=== PATIENT | female | born 1935 | race Caucasian/White ===

== ENCOUNTER 2020-12-30 08:22 | Inpatient (IN) ==
[2020-12-30 09:43] LABS: Basophils % 0.5 % (0.0-0.8); Eosinophils % 0.2 % (0.00-10.9); Hematocrit 40.5 VOL% (35.7-47.0); Immature Granulocytes % 0.4 %; Immature Granulocytes Absolute 0.02 #; Lymphocytes # 1.8 10*3/uL (1.4-4.0); Lymphocytes % 32.1 % (21.3-54.2); Mean Corpuscular HGB Conc 32.1 GM/DL (32-36); Mean Corpuscular Volume 97.6 FL (87-102); Mean Platelet Volume 10.7 FL (9.6-12.0); Monocytes % 13.7 % (1.7-12.7); Neutrophils % 53.1 % (38.7-73.9); Platelet Count 141 T/CUMM (130-400); Red Blood Count 4.15 MC/CUMM (3.8-5.5); Red Cell Distribution Width 13.7 % (9.3-17.3); White Blood Count 5.5 T/CUMM (4-12)
[2020-12-30 10:18] LABS: Glucose,Urine (UA) Negative (Negative); Protein,Urine Negative; Urine Appearance Clear (Clear); Urine Color Yellow (Yellow); Urine Specific Gravity 1.005 (1.001-1.035)
[2020-12-30 10:19] LABS: Bilirubin,Urine Negative (Negative); Blood, Urine Negative (Negative); Ketones,Urine 25 mg/dL (Negative); Nitrite,Urine Negative (Negative); Urine Urobilinogen < 2.0 EU/DL (0.2-1.0)
[2020-12-30 10:42] LABS: Alanine Aminotransferase 24 U/L (13-56); Albumin 2.4 G/DL (3.4-5.0); Alkaline Phosphatase 77 U/L (45-117); Aspartate Amino Transferase 31 U/L (0-37); Bilirubin,Total < 0.39 MG/DL (0.20-1.00); Blood Urea Nitrogen 12 MG/DL (7-18); Calcium 8.2 MG/DL (8.5-10.1); Carbon Dioxide 27 MMOL/L (21-32); Estimated Glom Filtration Rate 83 ML/MIN; Glucose 116 MG/DL (74-106); Osmolality,Calculated 279.4 MOS/KG (273-304); Potassium 4.5 MMOL/L (3.5-5.1); Sodium 140 MMOL/L (136-145); Total Protein 6.6 G/DL (6.4-8.2)
[2020-12-30 10:46] LABS: Barbiturates Screen,Urine Negative (Negative); Benzodiazepines Screen,Urine Negative (Negative); Cannabinoid Screen,Urine Negative (Negative); Opiate Screen,Urine Negative (Negative); Phencyclidine Screen,Urine Negative (Negative)
[2020-12-30] MEDS ORDERED: DEXTROSE 50% 25 GM/50 ML VIAL IV PRN ×2 (11:44)
[2020-12-30] MEDS ORDERED: GLUCAGON 1 MG VIAL IM PRN (11:44)
[2020-12-30] MEDS ORDERED: BISACODYL 5 MG TABLET PO PRN (11:45)
[2020-12-30] MEDS ORDERED: ACETAMINOPHEN 325 MG TABLET PO PRN (11:45)
[2020-12-30] MEDS ORDERED: ONDANSETRON 4 MG/2 ML VIAL IV PRN (11:45)
[2020-12-30] MEDS ORDERED: NICOTINE 21 MG/24 HR PATCH TRANSDERM PRN (11:45)
[2020-12-30] MEDS ORDERED: guaiFENesin/DM ER 600-30 MG TABLET PO PRN (11:45)
[2020-12-30] MEDS ORDERED: AZITHROMYCIN INJ 500 MG in SODIUM CHLORIDE 0.9% 250 ML IV ONE (11:47)
[2020-12-30] MEDS ORDERED: MELATONIN 3 MG TABLET PO PRN (11:47)
[2020-12-30 12:18] LABS: Ferritin 376.8 ng/ml (8-252)
[2020-12-30] MEDS: ENOXAPARIN 40 MG/0.4 ML SYRINGE SUBCUT SCH (12:33)
[2020-12-30] MEDS: SODIUM CHLORIDE 0.9% 1,000 ML IV SCH (12:33)
[2020-12-30] MEDS: cefTRIAXone 1,000 MG in SODIUM CHLORIDE 0.9% 100 ML IV SCH ×2 (13:14→14:00)
[2020-12-30] MEDS ORDERED: REMDESIVIR 200 MG in SODIUM CHLORIDE 0.9% 210 ML IV ONE (17:30)
[2020-12-31] MEDS: INSULIN LISPRO 100 UNIT/ML SUBCUT SCH ×6 (01:15→21:08)
[2020-12-31] MEDS: ASCORBIC ACID 500 MG TABLET PO SCH ×3 (01:17→21:07)
[2020-12-31] MEDS: DIVALPROEX 250 MG TABLET PO SCH ×4 (01:17→21:06)
[2020-12-31] MEDS: FAMOTIDINE 20 MG TABLET PO SCH ×3 (01:17→21:07)
[2020-12-31] MEDS: SODIUM CHLORIDE 0.9% 1,000 ML IV SCH ×3 (03:27→16:31)
[2020-12-31 05:18] LABS: Basophils % 0.3 % (0.0-0.8); Hematocrit 42.6 VOL% (35.7-47.0); Immature Granulocytes % 0.3 %; Immature Granulocytes Absolute 0.02 #; Lymphocytes % 33.2 % (21.3-54.2); Mean Corpuscular HGB Conc 32.9 GM/DL (32-36); Mean Corpuscular Volume 95.9 FL (87-102); Mean Platelet Volume 9.8 FL (9.6-12.0); Monocytes % 12.5 % (1.7-12.7); Neutrophils % 53.7 % (38.7-73.9); Platelet Count 154 T/CUMM (130-400); Red Blood Count 4.44 MC/CUMM (3.8-5.5); Red Cell Distribution Width 13.2 % (9.3-17.3)
[2020-12-31 05:35] LABS: Calcium 8.2 MG/DL (8.5-10.1); Osmolality,Calculated 276.5 MOS/KG (273-304); Risk Ratio 5.11; VLDL Cholesterol 20.4 MG/DL
[2020-12-31] MEDS: LEVOTHYROXINE 112 MCG TABLET PO SCH (05:37)
[2020-12-31 07:30] LABS: Ferritin 439.2 ng/ml (8-252)
[2020-12-31] MEDS: amLODIPine 5 MG TABLET PO SCH (08:03)
[2020-12-31] MEDS: CHOLECALCIFEROL 1,000 UNIT TABLET PO SCH (08:04)
[2020-12-31] MEDS: AZITHROMYCIN 250 MG TABLET PO SCH (08:04)
[2020-12-31] MEDS: CETIRIZINE 10 MG TABLET PO SCH (08:04)
[2020-12-31] MEDS: ZINC GLUCONATE 50 MG TABLET PO SCH (08:04)
[2020-12-31] MEDS: REMDESIVIR 100 MG in SODIUM CHLORIDE 0.9% 100 ML IV SCH (09:42)
[2020-12-31] MEDS: DEXAMETHASONE 4 MG/1 ML VIAL IV SCH (09:42)
[2020-12-31] MEDS: ENOXAPARIN 40 MG/0.4 ML SYRINGE SUBCUT SCH (11:59)
[2020-12-31] MEDS: cefTRIAXone 1,000 MG in SODIUM CHLORIDE 0.9% 100 ML IV SCH (11:59)
[2020-12-31] MEDS: SKIN HEALING OINT (AQUAPHOR) 50 GM TUBE TOP SCH (16:32)
[2021-01-01] MEDS: LEVOTHYROXINE 112 MCG TABLET PO SCH (05:32)
[2021-01-01 06:11] LABS: Basophils % 0.3 % (0.0-0.8); Hematocrit 38.8 VOL% (35.7-47.0); Hemoglobin 12.6 GM/DL (12.0-16.0); Immature Granulocytes % 0.3 %; Immature Granulocytes Absolute 0.02 #; Lymphocytes % 27.6 % (21.3-54.2); Mean Corpuscular HGB Conc 32.5 GM/DL (32-36); Mean Corpuscular Volume 96.3 FL (87-102); Mean Platelet Volume 9.7 FL (9.6-12.0); Monocytes % 12.6 % (1.7-12.7); Neutrophils % 59.2 % (38.7-73.9); Platelet Count 170 T/CUMM (130-400); Red Blood Count 4.03 MC/CUMM (3.8-5.5); Red Cell Distribution Width 13.2 % (9.3-17.3); White Blood Count 7.3 T/CUMM (4-12)
[2021-01-01] MEDS: SODIUM CHLORIDE 0.9% 1,000 ML IV SCH (06:13)
[2021-01-01 06:40] LABS: Alanine Aminotransferase 16 U/L (13-56); Alkaline Phosphatase 55 U/L (45-117); Aspartate Amino Transferase 26 U/L (0-37); Bilirubin,Total < 0.39 MG/DL (0.20-1.00); Blood Urea Nitrogen 24 MG/DL (7-18); Carbon Dioxide 25 MMOL/L (21-32); Estimated Glom Filtration Rate 90 ML/MIN; Ferritin 504.3 ng/ml (8-252); Glucose 120 MG/DL (74-106); Osmolality,Calculated 287.1 MOS/KG (273-304); Potassium 3.8 MMOL/L (3.5-5.1); Sodium 142 MMOL/L (136-145); Total Protein 5.3 G/DL (6.4-8.2)
[2021-01-01] MEDS: INSULIN LISPRO 100 UNIT/ML SUBCUT SCH ×4 (07:12→21:32)
[2021-01-01] MEDS: DEXAMETHASONE 4 MG/1 ML VIAL IV SCH (09:14)
[2021-01-01] MEDS: REMDESIVIR 100 MG in SODIUM CHLORIDE 0.9% 100 ML IV SCH (09:38)
[2021-01-01] MEDS: CETIRIZINE 10 MG TABLET PO SCH (09:44)
[2021-01-01] MEDS: ZINC GLUCONATE 50 MG TABLET PO SCH (09:44)
[2021-01-01] MEDS: ASCORBIC ACID 500 MG TABLET PO SCH ×2 (09:44→21:30)
[2021-01-01] MEDS: SKIN HEALING OINT (AQUAPHOR) 50 GM TUBE TOP SCH (09:44)
[2021-01-01] MEDS: AZITHROMYCIN 250 MG TABLET PO SCH (09:44)
[2021-01-01] MEDS: CHOLECALCIFEROL 1,000 UNIT TABLET PO SCH (09:44)
[2021-01-01] MEDS: FAMOTIDINE 20 MG TABLET PO SCH ×2 (09:44→21:30)
[2021-01-01] MEDS: DIVALPROEX 250 MG TABLET PO SCH ×3 (09:44→21:30)
[2021-01-01] MEDS: amLODIPine 5 MG TABLET PO SCH (09:44)
[2021-01-01] MEDS: cefTRIAXone 1,000 MG in SODIUM CHLORIDE 0.9% 100 ML IV SCH (12:09)
[2021-01-01] MEDS: ENOXAPARIN 40 MG/0.4 ML SYRINGE SUBCUT SCH (13:18)
[2021-01-02] MEDS: LEVOTHYROXINE 112 MCG TABLET PO SCH (06:05)
[2021-01-02 07:03] LABS: Basophils % 0.1 % (0.0-0.8); Hematocrit 37.2 VOL% (35.7-47.0); Hemoglobin 12.3 GM/DL (12.0-16.0); Immature Granulocytes % 0.5 %; Immature Granulocytes Absolute 0.04 #; Lymphocytes # 2.4 10*3/uL (1.4-4.0); Lymphocytes % 27.7 % (21.3-54.2); Mean Corpuscular HGB Conc 33.1 GM/DL (32-36); Mean Corpuscular Volume 95.4 FL (87-102); Mean Platelet Volume 10.3 FL (9.6-12.0); Neutrophils % 62.7 % (38.7-73.9); Platelet Count 201 T/CUMM (130-400); Red Cell Distribution Width 13.4 % (9.3-17.3); White Blood Count 8.7 T/CUMM (4-12)
[2021-01-02 07:26] LABS: Alanine Aminotransferase 14 U/L (13-56); Albumin 1.9 G/DL (3.4-5.0); Alkaline Phosphatase 55 U/L (45-117); Aspartate Amino Transferase 23 U/L (0-37); Bilirubin,Total < 0.39 MG/DL (0.20-1.00); Blood Urea Nitrogen 22 MG/DL (7-18); Calcium 7.8 MG/DL (8.5-10.1); Carbon Dioxide 25 MMOL/L (21-32); Estimated Glom Filtration Rate 99 ML/MIN; Ferritin 601.2 ng/ml (8-252); Glucose 97 MG/DL (74-106); Osmolality,Calculated 290.7 MOS/KG (273-304); Potassium 3.7 MMOL/L (3.5-5.1); Sodium 145 MMOL/L (136-145); Total Protein 5.1 G/DL (6.4-8.2)
[2021-01-02] MEDS: SODIUM CHLORIDE 0.9% 1,000 ML IV SCH ×2 (07:35→09:43)
[2021-01-02] MEDS: INSULIN LISPRO 100 UNIT/ML SUBCUT SCH ×4 (07:35→22:27)
[2021-01-02] MEDS: REMDESIVIR 100 MG in SODIUM CHLORIDE 0.9% 100 ML IV SCH (09:44)
[2021-01-02] MEDS: SKIN HEALING OINT (AQUAPHOR) 50 GM TUBE TOP SCH (09:44)
[2021-01-02] MEDS: DEXAMETHASONE 4 MG/1 ML VIAL IV SCH (09:46)
[2021-01-02] MEDS: FAMOTIDINE 20 MG TABLET PO SCH ×2 (09:47→22:25)
[2021-01-02] MEDS: ASCORBIC ACID 500 MG TABLET PO SCH ×2 (09:47→22:25)
[2021-01-02] MEDS: DIVALPROEX 250 MG TABLET PO SCH ×3 (09:47→22:25)
[2021-01-02] MEDS: CETIRIZINE 10 MG TABLET PO SCH (09:47)
[2021-01-02] MEDS: CHOLECALCIFEROL 1,000 UNIT TABLET PO SCH (09:47)
[2021-01-02] MEDS: AZITHROMYCIN 250 MG TABLET PO SCH (09:47)
[2021-01-02] MEDS: amLODIPine 5 MG TABLET PO SCH (09:47)
[2021-01-02] MEDS: ZINC GLUCONATE 50 MG TABLET PO SCH (09:47)
[2021-01-02] MEDS: ENOXAPARIN 40 MG/0.4 ML SYRINGE SUBCUT SCH (11:53)
[2021-01-02] MEDS: cefTRIAXone 1,000 MG in SODIUM CHLORIDE 0.9% 100 ML IV SCH (11:53)
[2021-01-03 05:31] LABS: Basophils % 0.4 % (0.0-0.8); Hematocrit 37.1 VOL% (35.7-47.0); Hemoglobin 12.6 GM/DL (12.0-16.0); Immature Granulocytes % 0.5 %; Immature Granulocytes Absolute 0.04 #; Lymphocytes # 2.5 10*3/uL (1.4-4.0); Lymphocytes % 32.7 % (21.3-54.2); Mean Corpuscular Volume 94.2 FL (87-102); Mean Platelet Volume 10.4 FL (9.6-12.0); Neutrophils % 56.4 % (38.7-73.9); Platelet Count 232 T/CUMM (130-400); Red Blood Count 3.94 MC/CUMM (3.8-5.5); Red Cell Distribution Width 13.2 % (9.3-17.3); White Blood Count 7.5 T/CUMM (4-12)
[2021-01-03 06:02] LABS: Alanine Aminotransferase 17 U/L (13-56); Albumin 1.7 G/DL (3.4-5.0); Alkaline Phosphatase 56 U/L (45-117); Aspartate Amino Transferase 19 U/L (0-37); Bilirubin,Total < 0.39 MG/DL (0.20-1.00); Blood Urea Nitrogen 19 MG/DL (7-18); Calcium 7.9 MG/DL (8.5-10.1); Carbon Dioxide 25 MMOL/L (21-32); Estimated Glom Filtration Rate 99 ML/MIN; Ferritin 694.6 ng/ml (8-252); Glucose 135 MG/DL (74-106); Osmolality,Calculated 291.7 MOS/KG (273-304); Potassium 3.3 MMOL/L (3.5-5.1); Sodium 145 MMOL/L (136-145); Total Protein 5.1 G/DL (6.4-8.2)
[2021-01-03] MEDS: LEVOTHYROXINE 112 MCG TABLET PO SCH (06:25)
[2021-01-03] MEDS ORDERED: POTASSIUM CHLORIDE 20 MEQ TABLET PO ONE (07:31)
[2021-01-03] MEDS: INSULIN LISPRO 100 UNIT/ML SUBCUT SCH ×4 (07:56→20:09)
[2021-01-03] MEDS: AZITHROMYCIN 250 MG TABLET PO SCH (08:43)
[2021-01-03] MEDS: ZINC GLUCONATE 50 MG TABLET PO SCH (08:43)
[2021-01-03] MEDS: CHOLECALCIFEROL 1,000 UNIT TABLET PO SCH (08:43)
[2021-01-03] MEDS: DIVALPROEX 250 MG TABLET PO SCH ×3 (08:43→21:35)
[2021-01-03] MEDS: ASCORBIC ACID 500 MG TABLET PO SCH ×2 (08:44→21:36)
[2021-01-03] MEDS: DEXAMETHASONE 4 MG/1 ML VIAL IV SCH (08:44)
[2021-01-03] MEDS: CETIRIZINE 10 MG TABLET PO SCH (08:44)
[2021-01-03] MEDS: amLODIPine 5 MG TABLET PO SCH (08:44)
[2021-01-03] MEDS: FAMOTIDINE 20 MG TABLET PO SCH ×2 (08:44→21:36)
[2021-01-03] MEDS: SKIN HEALING OINT (AQUAPHOR) 50 GM TUBE TOP SCH (08:45)
[2021-01-03 08:57] LABS: Anisocytosis Slight; Platelet Estimate Normal; Spherocytes Few
[2021-01-03] MEDS: SODIUM CHLORIDE 0.9% 1,000 ML IV SCH ×2 (09:10→17:22)
[2021-01-03] MEDS ORDERED: DOCUSATE SODIUM 100 MG CAPSULE PO PRN (09:13)
[2021-01-03] MEDS ORDERED: BISACODYL 10 MG SUPP RECTAL ONE (09:14)
[2021-01-03] MEDS: REMDESIVIR 100 MG in SODIUM CHLORIDE 0.9% 100 ML IV SCH (10:23)
[2021-01-03] MEDS: POLYETHYLENE GLYCOL POWDER 17 GM PACK PO SCH (10:25)
[2021-01-03] MEDS: cefTRIAXone 1,000 MG in SODIUM CHLORIDE 0.9% 100 ML IV SCH (12:06)
[2021-01-03] MEDS: ENOXAPARIN 40 MG/0.4 ML SYRINGE SUBCUT SCH (12:06)
[2021-01-04 03:18] LABS: Basophils % 0.3 % (0.0-0.8); Hematocrit 39.8 VOL% (35.7-47.0); Hemoglobin 13.2 GM/DL (12.0-16.0); Immature Granulocytes % 1.3 %; Lymphocytes # 2.5 10*3/uL (1.4-4.0); Lymphocytes % 32.7 % (21.3-54.2); Mean Corpuscular HGB Conc 33.2 GM/DL (32-36); Mean Corpuscular Volume 93.2 FL (87-102); Neutrophils % 57.7 % (38.7-73.9); Platelet Count 260 T/CUMM (130-400); Red Blood Count 4.27 MC/CUMM (3.8-5.5); Red Cell Distribution Width 13.3 % (9.3-17.3); White Blood Count 7.8 T/CUMM (4-12)
[2021-01-04 03:45] LABS: Alanine Aminotransferase 16 U/L (13-56); Albumin 1.9 G/DL (3.4-5.0); Alkaline Phosphatase 58 U/L (45-117); Aspartate Amino Transferase 19 U/L (0-37); Bilirubin,Total < 0.39 MG/DL (0.20-1.00); Blood Urea Nitrogen 16 MG/DL (7-18); Calcium 8.1 MG/DL (8.5-10.1); Carbon Dioxide 24 MMOL/L (21-32); Estimated Glom Filtration Rate 99 ML/MIN; Ferritin 747.2 ng/ml (8-252); Glucose 148 MG/DL (74-106); Potassium 3.3 MMOL/L (3.5-5.1); Sodium 143 MMOL/L (136-145); Total Protein 5.2 G/DL (6.4-8.2)
[2021-01-04 04:55] LABS: Platelet Estimate Adequate; Smudge Cells Few
[2021-01-04] MEDS: LEVOTHYROXINE 112 MCG TABLET PO SCH (06:10)
[2021-01-04] MEDS: INSULIN LISPRO 100 UNIT/ML SUBCUT SCH ×4 (07:49→21:09)
[2021-01-04] MEDS: CHOLECALCIFEROL 1,000 UNIT TABLET PO SCH (09:03)
[2021-01-04] MEDS: POLYETHYLENE GLYCOL POWDER 17 GM PACK PO SCH (09:03)
[2021-01-04] MEDS: amLODIPine 5 MG TABLET PO SCH (09:04)
[2021-01-04] MEDS: ZINC GLUCONATE 50 MG TABLET PO SCH (09:04)
[2021-01-04] MEDS: CETIRIZINE 10 MG TABLET PO SCH (09:04)
[2021-01-04] MEDS: DIVALPROEX 250 MG TABLET PO SCH ×3 (09:04→21:10)
[2021-01-04] MEDS: FAMOTIDINE 20 MG TABLET PO SCH ×2 (09:04→21:10)
[2021-01-04] MEDS: ASCORBIC ACID 500 MG TABLET PO SCH ×2 (09:04→21:10)
[2021-01-04] MEDS: DEXAMETHASONE 4 MG/1 ML VIAL IV SCH (09:05)
[2021-01-04] MEDS: SKIN HEALING OINT (AQUAPHOR) 50 GM TUBE TOP SCH (09:05)
[2021-01-04] MEDS: SODIUM CHLORIDE 0.9% 1,000 ML IV SCH (09:51)
[2021-01-04] MEDS: ENOXAPARIN 40 MG/0.4 ML SYRINGE SUBCUT SCH (12:31)
[2021-01-04] MEDS: cefTRIAXone 1,000 MG in SODIUM CHLORIDE 0.9% 100 ML IV SCH (12:31)
[2021-01-05] MEDS: LEVOTHYROXINE 112 MCG TABLET PO SCH (05:41)
[2021-01-05 06:55] LABS: Basophils % 0.5 % (0.0-0.8); Hematocrit 42.8 VOL% (35.7-47.0); Hemoglobin 14.8 GM/DL (12.0-16.0); Immature Granulocytes % 2.7 %; Lymphocytes # 2.6 10*3/uL (1.4-4.0); Lymphocytes % 34.8 % (21.3-54.2); Mean Corpuscular HGB Conc 34.6 GM/DL (32-36); Mean Corpuscular Volume 90.5 FL (87-102); Mean Platelet Volume 10.1 FL (9.6-12.0); Platelet Count 349 T/CUMM (130-400); Red Blood Count 4.73 MC/CUMM (3.8-5.5); Red Cell Distribution Width 12.8 % (9.3-17.3); White Blood Count 7.5 T/CUMM (4-12)
[2021-01-05 07:17] LABS: Albumin 2.1 G/DL (3.4-5.0); Bilirubin,Total 0.4 MG/DL (0.20-1.00); Calcium 8.5 MG/DL (8.5-10.1); Ferritin 860.4 ng/ml (8-252); Osmolality,Calculated 281.4 MOS/KG (273-304); Potassium 3.2 MMOL/L (3.5-5.1); Total Protein 5.9 G/DL (6.4-8.2)
[2021-01-05 07:36] LABS: Atypical Lymphocytes Few; Lymphocytes 30 % (20-55); Segmented Neutrophils 58 % (50-85); Total Cells Counted 100
[2021-01-05 07:37] LABS: Hypochromasia Slight
[2021-01-05 07:40] LABS: Microcytosis 1+; Polychromasia Slight
[2021-01-05 07:41] LABS: Platelet Estimate Normal
[2021-01-05] MEDS: INSULIN LISPRO 100 UNIT/ML SUBCUT SCH ×3 (07:48→16:12)
[2021-01-05] MEDS ORDERED: POTASSIUM BICARB EFFERVESCENT 20 MEQ TAB.EFF PO ONE (08:00)
[2021-01-05] MEDS: DIVALPROEX 250 MG TABLET PO SCH ×2 (09:03→15:15)
[2021-01-05] MEDS: ZINC GLUCONATE 50 MG TABLET PO SCH (09:03)
[2021-01-05] MEDS: amLODIPine 5 MG TABLET PO SCH (09:04)
[2021-01-05] MEDS: DEXAMETHASONE 4 MG/1 ML VIAL IV SCH (09:04)
[2021-01-05] MEDS: CHOLECALCIFEROL 1,000 UNIT TABLET PO SCH (09:04)
[2021-01-05] MEDS: FAMOTIDINE 20 MG TABLET PO SCH (09:04)
[2021-01-05] MEDS: ASCORBIC ACID 500 MG TABLET PO SCH (09:04)
[2021-01-05] MEDS: SKIN HEALING OINT (AQUAPHOR) 50 GM TUBE TOP SCH (09:04)
[2021-01-05] MEDS: POLYETHYLENE GLYCOL POWDER 17 GM PACK PO SCH (09:04)
[2021-01-05] MEDS: CETIRIZINE 10 MG TABLET PO SCH (09:04)
[2021-01-05] MEDS: SODIUM CHLORIDE 0.9% 1,000 ML IV SCH ×2 (09:28→11:32)
[2021-01-05] MEDS: ENOXAPARIN 40 MG/0.4 ML SYRINGE SUBCUT SCH (11:25)
[2021-01-05] MEDS: cefTRIAXone 1,000 MG in SODIUM CHLORIDE 0.9% 100 ML IV SCH (11:32)
[2021-01-05 15:49] VITALS: BP 138/74
== END 2021-01-05 18:27 | disposition home or self-care (01) | DRG 177 ==
LOC: EDUNIT# → EDBD → SUATTDRO → N.ED 08:22 → SUATTDRO 11:44 → N.EDINP 11:44 → N.2E 23:55
PROVIDERS: ADMIT Internal Medicine; ATTEND Internal Medicine